=== PATIENT | male | born 1980 ===

== ENCOUNTER 2022-02-06 16:59 | Outpatient (CLI) | payer BC ==
[2022-02-06 18:15] LABS: Mean Corpuscular HGB CONC 36.1 g/dL (32.0-36.0); Mean Corpuscular Hemoglobin 30.3 pg (27.0-33.0); Platelet Count 289 10x3/uL (150-450); RBC Distribution Width 12.8 % (11.5-14.5); Red Blood Cell (RBC) Count 4.95 10x6/uL (4.32-5.72); White Blood Cell (WBC) Count 7.5 10x3/uL (3.5-10.5)
[2022-02-06 18:37] LABS: Anion Gap 13 mmol/L (10-20); BUN (Urea Nitrogen) 12 mg/dL (8.9-20.6); Calc. Creatinine Clearance 0 mL/min (70-130); Calcium 9.4 mg/dL (7.8-10.44); Carbon Dioxide 27 mmol/L (22-29); Chloride 102 mmol/L (98-107); Estimated GFR 112; Glucose 281 mg/dL (70-105); Potassium 4.6 mmol/L (3.5-5.1); Sodium 137 mmol/L (136-145)
== END 2022-02-06 17:00 | disposition home or self-care (01) ==
LOC: CSHLAB 16:59
PROVIDERS: ATTEND Podiatrist Foot & Ankle Surgery
DX: Z01.818 Encounter for other preprocedural examination (principal)
CPT/HCPCS: 80048; 85027; 93005; 93010

== ENCOUNTER 2022-02-15 09:03 | Day surgery (SDC) | payer BC ==
[2022-02-14 08:32] VITALS: BMI 31.1
[2022-02-15] MEDS ORDERED: Bupivacaine PF 0.5% 30 ML VIAL ONE (10:08)
[2022-02-15] MEDS ORDERED: Neomycin-Polymyxin 1 ML AMP ONE (10:08)
[2022-02-15] MEDS ORDERED: Fentanyl 100 MCG/2 ML VIAL ONE (10:51)
[2022-02-15] MEDS ORDERED: Midazolam HCl 2 mg/2 ml Vial ONE (10:51)
[2022-02-15] MEDS ORDERED: PROPOFOL 20 ML ONE (10:51)
[2022-02-15] MEDS ORDERED: CEFAZOLIN 2 GM VIAL ONE (10:52)
[2022-02-15] MEDS ORDERED: Ondansetron PF 4 MG/2 ML Vial ONE (10:52)
[2022-02-15] MEDS ORDERED: Lidocaine 1% PF 5 ML VIAL ONE (10:52)
== END 2022-02-15 12:55 | disposition home or self-care (01) ==
LOC: CSHSDC 09:03
PROVIDERS: ATTEND Podiatrist Foot & Ankle Surgery
DX: G89.29 Other chronic pain (principal); M77.42 Metatarsalgia, left foot; M79.672 Pain in left foot; E11.9 Type 2 diabetes mellitus without complications; I10 Essential (primary) hypertension; Z79.84 Long term (current) use of oral hypoglycemic drugs; Z79.899 Other long term (current) drug therapy; Z88.8 Allergy status to other drugs, medicaments and biological substances
CPT/HCPCS: 36416; J2250; J2405; J2704; J3010; S0020